=== PATIENT | male | born 1965 | race Caucasian/White ===

== ENCOUNTER 2016-11-24 22:18 | Emergency (ER) | payer BC ==
[2016-11-25 01:27] VITALS: BP 103/70
== END 2016-11-25 01:27 | disposition home or self-care (01) ==
LOC: ED 22:18
DX: S39.92XA Unspecified injury of lower back, initial encounter (principal); Z79.899 Other long term (current) drug therapy; Z98.890 Other specified postprocedural states; W46.1XXA Contact with contaminated hypodermic needle, initial encounter; Y93.89 Activity, other specified; Y92.89 Other specified places as the place of occurrence of the external cause; Y99.8 Other external cause status